=== PATIENT | female | born 1990 | race Caucasian/White ===

== ENCOUNTER → 2020-03-10 | Outpatient (CLI) | payer OTHER ==
--- NOTE | 2020-03-10 08:57 | Diagnostic Imaging Report ---
PROCEDURE: CT abdomen with and without contrast. TECHNIQUE: Multiple contiguous axial CT images of the abdomen were obtained prior to and after intravenous administration of iodinated contrast. Auto Exposure Controls were utilized during the CT exam to meet ALARA standards for radiation dose reduction. INDICATION: Right upper quadrant pain. FINDINGS: The appendix is visualized and normal. The kidneys unobstructed, nonfocal and nonacute. No perinephric fluid collection or edema. The liver, spleen, adrenals and pancreas unremarkable. Gallbladder normal. The abdominal small and large bowel loops segments showed no abnormal dilatation. Air-fluid levels, wall thickening, perienteric or pericolonic edema. The lung bases in the osseous structures were nonacute. IMPRESSION: Unremarkable abdominal CT. Dictated by: Dictated on workstation # [id number]
== END ==
LOC: RAD 07:12
PROVIDERS: ATTEND Nurse Practitioner Family
DX: R10.31 Right lower quadrant pain (principal); R10.11 Right upper quadrant pain
CPT/HCPCS: 74170

== ENCOUNTER → 2021-06-20 | Outpatient (CLI) | payer OTHER ==
--- NOTE | 2021-06-20 11:20 | Diagnostic Imaging Report ---
PROCEDURE: MRI right joint lower extremity without contrast. TECHNIQUE: Multiplanar, multisequence non contrast-enhanced MRI of the right lower extremity was accomplished. INDICATION: Medial right knee pain COMPARISON: None FINDINGS: No acute fracture is seen in the right knee. There is mild subchondral bone marrow edema at the lateral facet of the patella. No significant joint effusion is seen. The articular cartilage in the patellofemoral compartment demonstrates heterogeneity with no large full-thickness defects. The articular cartilage in the medial compartment and lateral compartments demonstrate no full-thickness defects. The medial and lateral menisci appear intact. The anterior and posterior cruciate ligaments are intact. The medial collateral ligament is intact. The lateral collateral ligamentous complex is intact. The extensor mechanism is intact. The medial and lateral retinacula are intact. Soft tissues about the knee demonstrate no acute abnormality. IMPRESSION: 1. Mild bone marrow edema in the lateral patella with heterogeneity of the cartilage but no full-thickness cartilage defects. 2. No meniscus or ligament tear seen in the right knee. Dictated by: Dictated on workstation # [id number]
== END ==
LOC: RAD 09:30
PROVIDERS: ATTEND Nurse Practitioner Family
DX: M94.8X8 Other specified disorders of cartilage, other site (principal); R60.0 Localized edema
CPT/HCPCS: 73721